=== PATIENT | male | born 1990 | race Caucasian/White ===

== ENCOUNTER 2021-02-12 01:08 | Emergency (ER) | payer OTHER ==
[~2021-02-12] VITALS: Ht 182.9 cm; Wt 81.7 kg
[~2021-02-12 01:08] MED LIST: CEPH500 PO; DOXY100 PO; HYDHCL25 PO; IBUP800 PO; INCARCERATION; LIDO2L PO; LORA2 PO; METPRE4DP PO; NAPR500 PO; OMEP20ER; OXYACE5T PO; QUET100 PO; RXLORA1 PO; SERT25 PO; Veetids 500500 MG PO
[2021-02-12 01:55] LABS: BASOPHILS ABSOLUTE AUTO 0.03 K/mm3 (0.00-0.23); BASOPHILS PERCENT AUTO 0 % (0-2); EOSINOPHILS ABSOLUTE AUTO 0.02 K/mm3 (0.00-0.68); EOSINOPHILS PERCENT AUTO 0 % (0-6); Hematocrit 41.6 % (37.0-53.0); Hemoglobin 13.2 g/dL (13.5-17.5); IMMATURE GRAN ABSOLUTE AUTO 0.03 K/mm3 (0.00-0.10); IMMATURE GRAN PERCENT AUTO 0 % (0-1); LYMPHOCYTES ABSOLUTE AUTO 2.92 K/mm3 (0.84-5.20); LYMPHOCYTES PERCENT AUTO 39 % (21-46); MONOCYTES ABSOLUTE AUTO 0.63 K/mm3 (0.16-1.47); MONOCYTES PERCENT AUTO 8 % (4-13); Mean Corpuscular HGB 30.8 pg (26.0-34.0); Mean Corpuscular HGB Conc 31.7 g/dL (31.5-36.5); Mean Corpuscular Volume 97 fL (80-100); Mean Platelet Volume 9.4 fL (9.1-12.4); NEUTROPHILS ABSOLUTE AUTO 3.86 K/mm3 (1.96-9.15); NEUTROPHILS PERCENT AUTO 52 % (41-73); Platelet Count 258 K/mm3 (150-400); RDW Coefficient Variation 12.3 % (11.7-14.2); RDW Standard Deviation 44.5 fL (35.1-46.3); Red Blood Cell Count 4.29 M/mm3 (4.30-5.90); White Blood Cell Count 7.49 K/mm3 (4.00-11.30)
[2021-02-12 02:10] LABS: International Normalized Ratio 0.99; Prothrombin Time Results 10.7 Sec (9.7-11.5)
[2021-02-12 02:11] LABS: Alanine Aminotransfer (ALT/SGP 54 U/L (12-78); Albumin, Blood 4.3 g/dL (3.4-5.0); Albumin/Globulin Ratio 1.3 (0.8-1.8); Alk Phos 72 U/L (50-136); Anion Gap 20 mmol/L (6-16); Aspartate Aminotrans (AST/SGOT 32 U/L (12-37); Beta HCG, Quantitative, Serum <1 mIU/mL (0-1); Bilirubin, Total 0.8 mg/dL (0.1-1.0); Blood Urea Nitrogen 20 mg/dL (8-24); Bun/Creatinine Ratio 15.3 (12.0-20.0); CO2, Blood 19 mmol/L (21-32); Calcium, Blood 9.5 mg/dL (8.5-10.1); Chloride, Blood 101 mmol/L (98-108); Creatinine, Blood 1.31 mg/dL (0.60-1.20); Ethanol (Alcohol), Blood, Med <3 mg/dL; Globulin, Blood 3.2 g/dL (2.2-4.0); Glomerular Filtration Rate >60 (60-); Glucose, Blood 231 mg/dL (70-99); Potassium, Blood 3.2 mmol/L (3.5-5.5); Sodium, Blood 140 mmol/L (136-145); Total Protein, Blood 7.5 g/dL (6.4-8.2)
[2021-02-12 03:13] LABS: Magnesium, Blood 2.9 mg/dL (1.6-2.4)
--- NOTE | 2021-02-12 06:13 | NUR ---
02/12/21 0613 Sondra Cody PT BROUGHT FROM ER TRAUMA BAY DIRECTLY TO OR. NO CONSENT OBTAINED, EMERGENT PROCEDURE. DR. JOE CALLED IN TO ASSIST. PT ON CONTINUOUS RAPID INFUSION. CENTRAL LINE PLACED BY DR. JOE AT END OF PROCEDURE. [facility] CAME TO OR TO TRANSFER.
== END 2021-02-12 05:05 | disposition short-term general hospital (02) ==
LOC: ER 01:08 → ICUW 02:54 → ER 02:54 → ICUW 05:05
PROVIDERS: Emergency Medicine
DX: S21.332A Puncture wound without foreign body of left front wall of thorax with penetration into thoracic cavity, initial encounter (principal); I10 Essential (primary) hypertension; I31.4 Cardiac tamponade; S27.1XXA Traumatic hemothorax, initial encounter; I46.9 Cardiac arrest, cause unspecified; R57.8 Other shock; W26.0XXA Contact with knife, initial encounter
CPT/HCPCS: 31500; 32551; 33016; 36430; 36556; 71045; 71275; 80053; 83605; 83735; 84702; 85025; 85384; 85610; 85730; 86850; 86900; 86901; 86923; 92950; 96374-59; 96375-59; 99291-25; C1751; G0390; G0480; J0171; J0690; J2250; J3010; P9016; P9035; P9059; Q9967

== ENCOUNTER 2021-11-08 20:31 | Emergency (ER) | payer OTHER ==
[~2021-11-08] VITALS: Ht 180.3 cm; Wt 99.8 kg
== END 2021-11-08 23:18 | disposition left against medical advice (07) ==
LOC: ER 20:31
DX: T14.8XXA Other injury of unspecified body region, initial encounter (principal)
CPT/HCPCS: 93005; 93010; 99282-25

== ENCOUNTER 2021-11-10 20:08 | Emergency (ER) | payer OTHER ==
[~2021-11-10] VITALS: Ht 180.3 cm; Wt 100.7 kg
[2021-11-10 21:53] LABS: BASOPHILS ABSOLUTE AUTO 0.03 K/mm3 (0.00-0.23); BASOPHILS PERCENT AUTO 0 % (0-2); EOSINOPHILS ABSOLUTE AUTO 0.07 K/mm3 (0.00-0.68); EOSINOPHILS PERCENT AUTO 1 % (0-6); Hematocrit 36.7 % (37.0-53.0); Hemoglobin 12.1 g/dL (13.5-17.5); IMMATURE GRAN ABSOLUTE AUTO 0.02 K/mm3 (0.00-0.10); IMMATURE GRAN PERCENT AUTO 0 % (0-1); LYMPHOCYTES ABSOLUTE AUTO 1.47 K/mm3 (0.84-5.20); LYMPHOCYTES PERCENT AUTO 19 % (21-46); MONOCYTES ABSOLUTE AUTO 0.64 K/mm3 (0.16-1.47); MONOCYTES PERCENT AUTO 8 % (4-13); Mean Corpuscular HGB 29.4 pg (26.0-34.0); Mean Corpuscular Volume 89 fL (80-100); Mean Platelet Volume 8.8 fL (9.1-12.4); NEUTROPHILS ABSOLUTE AUTO 5.49 K/mm3 (1.96-9.15); NEUTROPHILS PERCENT AUTO 71 % (41-73); Platelet Count 343 K/mm3 (150-400); RDW Coefficient Variation 12.3 % (11.7-14.2); RDW Standard Deviation 40.5 fL (35.1-46.3); Red Blood Cell Count 4.12 M/mm3 (4.30-5.90); White Blood Cell Count 7.72 K/mm3 (4.00-11.30)
[2021-11-10 22:12] LABS: Albumin, Blood 3.7 g/dL (3.4-5.0); Albumin/Globulin Ratio 0.9 (0.8-1.8); Bilirubin, Total 0.3 mg/dL (0.1-1.0); Calcium, Blood 9.6 mg/dL (8.5-10.1); Creatinine, Blood 0.73 mg/dL (0.60-1.20); Globulin, Blood 4.1 g/dL (2.2-4.0); Potassium, Blood 3.6 mmol/L (3.5-5.5); Total Protein, Blood 7.8 g/dL (6.4-8.2)
[2021-11-11] MEDS ORDERED: Vibramycin100 MG PO (00:11)
== END 2021-11-11 00:18 | disposition home or self-care (01) ==
LOC: ER 20:08
PROVIDERS: Physician Assistant
DX: L08.9 Local infection of the skin and subcutaneous tissue, unspecified (principal); I10 Essential (primary) hypertension; Z88.0 Allergy status to penicillin; Z87.891 Personal history of nicotine dependence
CPT/HCPCS: 36415; 80053; 85025; 99283; A9270

== ENCOUNTER 2025-03-08 03:57 | Emergency (ER) | payer OTHER ==
[~2025-03-08] VITALS: Ht 177.8 cm; Wt 97.5 kg
[~2025-03-08 03:57] MED LIST changes: +Vibramycin100 MG PO
[2025-03-08 04:06] VITALS: BP 153/93
== END 2025-03-08 05:10 | disposition home or self-care (01) ==
LOC: ER 03:57
DX: S50.11XA Contusion of right forearm, initial encounter (principal); I10 Essential (primary) hypertension; Z88.0 Allergy status to penicillin; Z79.2 Long term (current) use of antibiotics; Y08.02XA Assault by strike by baseball bat, initial encounter
CPT/HCPCS: 73090; 99283-25; A9270